=== PATIENT | male | born 1995 | race Hispanic/Latino ===

== ENCOUNTER 2017-12-08 14:56 | Emergency (ER) | payer OTHER | END 2017-12-08 15:40 | disposition home or self-care (01) | LOC: EDH 14:56 | DX: S16.1XXA Strain of muscle, fascia and tendon at neck level, initial encounter (principal); S40.012A Contusion of left shoulder, initial encounter; V59.49XA Driver of pick-up truck or van injured in collision with other motor vehicles in traffic accident, initial encounter; Y93.89 Activity, other specified; Y92.488 Other paved roadways as the place of occurrence of the external cause; Y99.8 Other external cause status | CPT/HCPCS: 99281 ==

== ENCOUNTER 2018-09-26 04:47 | Emergency (ER) | payer OTHER | END 2018-09-26 05:10 | LOC: EDH 04:47 | DX: Z02.83 Encounter for blood-alcohol and blood-drug test (principal) ==